=== PATIENT | female | born 1995 | race Caucasian/White ===

== ENCOUNTER 2016-11-23 13:03 | Emergency (ER) | payer OTHER ==
[~2016-11-23] VITALS: Ht 175.3 cm; Wt 78.9 kg
[~2016-11-23 13:03] MED LIST: ADDERALLXR PO; AMOXIL250 M1; BACTRIM DS TABL1 TAB PO; CLONIDINE PO; CLONIDINE TOP; COLACE PO; FLONASE16 GM; IBUPROFEN PO; MULTI VITAMIN1 EACH PO; NO MEDICATIONS; NORCO1 TAB 10/3 PO; PRENATA CHEWAB1 EAC1; PROCTOFOAM-HC 110 GM PR; SUDAFED PO; SUDAFED30 M1 PO; TYLENOL #3 PO; ZITHROMAX PO
== END 2016-11-23 14:13 | disposition home or self-care (01) ==
LOC: SED 13:03
DX: S05.01XA Injury of conjunctiva and corneal abrasion without foreign body, right eye, initial encounter (principal); H00.013 Hordeolum externum right eye, unspecified eyelid; X58.XXXA Exposure to other specified factors, initial encounter
CPT/HCPCS: 99283